=== PATIENT | female | born 1940 | race Caucasian/White ===

== ENCOUNTER 2020-06-03 05:16 | Day surgery (SDC) | payer OTHER, BC ==
[2020-05-31 16:21] VITALS: BMI 20.7
[2020-06-03 11:01] VITALS: TEMP 98.4
[2020-06-03 12:41] VITALS: BP 141/62; PULSE 67
== END 2020-06-03 11:55 | disposition home or self-care (01) ==
LOC: JASU-ENDO 05:16
PROVIDERS: ATTEND Internal Medicine Gastroenterology
PROC: 0DJD8ZZ Inspection of Lower Intestinal Tract, Via Natural or Artificial Opening Endoscopic (ICD-10-PCS; principal; 2020-06-03 09:30)
DX: Z12.11 Encounter for screening for malignant neoplasm of colon (principal); Z83.71 Family history of colonic polyps; K57.30 Diverticulosis of large intestine without perforation or abscess without bleeding; K64.8 Other hemorrhoids; K63.89 Other specified diseases of intestine; R19.4 Change in bowel habit; R63.4 Abnormal weight loss; E11.9 Type 2 diabetes mellitus without complications